=== PATIENT | male | born 1980 | race Caucasian/White ===

== ENCOUNTER 2019-04-15 05:00 | Day surgery (SDC) | payer OTHER ==
[~2019-04-15] VITALS: Ht 193 cm; Wt 102.1 kg
[2019-04-15 05:52] LABS: CALC OSMOLALITY 281 mosm/kg (275-300); CALCIUM 8.7 mg/dL (8.5-10.1); CARBON DIOXIDE 31.9 mmol/L (21.0-32.0); CHLORIDE - SERUM 103 mmol/L (98-107); CREATININE - SERUM 1.1 mg/dL (0.6-1.3); GLUCOSE 94 mg/dL (74-106); SODIUM 140 mmol/L (136-145); UREA NITROGEN 21 mg/dL (7-18); eGFR NON AFRICAN AMERICAN 80 mL/min (90-120)
[2019-04-15 05:54] LABS: BASOPHILS 0.2 % (0-2); EOSINOPHILS 2.3 % (0-7); LYMPHOCYTES 35.1 % (15-50); MCHC 35.9 g/dL (31.0-37.0); MCV 83.5 fL (80.0-100.0); MEAN PLATELET VOLUME 11.4 fL (7.4-10.4); MONOCYTES 6.8 % (2-11); NEUTROPHILS 55.6 % (40-80); PLATELET COUNT 142 10x3/uL (130-400); RBC 4.67 10x6/uL (4.20-6.10); RDW 13.3 % (11.5-14.5); WBC 5.6 10x3/uL (4.8-10.8)
[2019-04-15] MEDS ORDERED: ULTRAM50 MG PO (06:23)
[2019-04-15 06:39] VITALS: BP 128/71; Ht 193 cm; Wt 102.1 kg
== END 2019-04-15 13:50 ==
LOC: D.OPS 05:00
PROVIDERS: ATTEND Orthopaedic Surgery
DX: S83.512A Sprain of anterior cruciate ligament of left knee, initial encounter (principal); S83.282A Other tear of lateral meniscus, current injury, left knee, initial encounter; M65.862 Other synovitis and tenosynovitis, left lower leg; Z01.812 Encounter for preprocedural laboratory examination